=== PATIENT | female | born 2000 | race Caucasian/White ===

== ENCOUNTER 2021-04-06 22:44 | Emergency (ER) | payer OTHER, SELFPAY ==
[2021-04-06 22:44] VITALS: BP 120/75; PULSE 62; RESP 16; TEMP 36.8; O2SAT 98; BMI 19.7
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
[2021-04-07 01:06] VITALS: PULSE 81; RESP 14; O2SAT 99
== END 2021-04-07 01:06 | disposition home or self-care (01) ==
LOC: ED 04-07 01:03
PROVIDERS: Emergency Provider Emergency Medicine
DX: S09.90XA Unspecified injury of head, initial encounter (principal); V43.52XA Car driver injured in collision with other type car in traffic accident, initial encounter; Y92.410 Unspecified street and highway as the place of occurrence of the external cause; Z79.899 Other long term (current) drug therapy
CPT/HCPCS: 99282

== ENCOUNTER 2022-04-10 00:35 | Emergency (ER) | payer OTHER, SELFPAY ==
[2022-04-10 00:36] VITALS: BP 117/63; PULSE 77; RESP 15; TEMP 36.8; O2SAT 98; BMI 22.4
--- NOTE | 2022-04-10 01:11 | EDS_ITS ---
HPI HPI - URI History of Present Illness Chief Complaint: Ear Problem Informant: patient Onset/Context/Timing Onset: Today Context: Gradual Onset Timing: Continuous Quality: Sore throat, ear pain on the right Current Severity: Moderate Maximum Severity: Moderate Worsened by: Swallowing Relieved by: - (Nothing has not tried anything) Narrative Narrative: Patient is a student here to college. She has been around a lot of other students since it is the beginning of the school year but nothing that she knows of as far as illness. Sore throat and right earache that started today, hearing is normal. No fevers or chills. No cough. She went swimming last week. ROS ROS ED Constitutional Constitutional ED: Denies chills or fever(s) ENT ENT ED: Reports ear pain right and sore throat; Denies nasal congestion or rhinorrhea Cardiovascular Cardiovascular: Denies chest pain or palpitations Respiratory/Chest Respiratory/Chest: Denies cough or dyspnea Gastrointestinal Gastrointestinal: Denies abdominal pain, diarrhea, nausea or vomiting Genitourinary Genitourinary ED: Denies dysuria or hematuria Musculoskeletal Musculoskeletal: Denies myalgias or neck pain Integumentary Denies abscess or rash Neurologic Neurologic: Denies headache(s), paresthesias or weakness Psychiatric Psychiatric: Denies depression or suicidal thoughts Endocrine Endocrinology: Denies polydipsia or polyuria PFSH PFS Medical History Anxiety Depression Home Medications norgestimate 0.25 mg-ethinyl estradiol 35 mcg tablet (Sprintec (28)) 1 tab PO DAILY 04/07/21 [History Last Taken Unknown] sertraline 120 mg PO.IVFORM DAILY 04/07/21 [History Last Taken Unknown] Allergy/AdvReac Type Severity Reaction Status Date / Time No Known Allergies Allergy Verified 04/06/21 22:46 Social History Smoking Status: Never smoker EXAM Physical Exam Const Vital Signs: 04/10/22 00:36 Temperature 98.2 F Temperature Source Oral Pulse Rate 77 Respiratory Rate 15 Blood Pressure 117/63 Blood Pressure Mean 81 Pulse Ox 98 Oxygen Delivery Method Room Air Positive well nourished and well developed General Appearance ED: well developed and NAD HEENT Reports moist mucous membranes HEENT Narrative: TMs normal bilaterally. Painful exam right EAC with some mild swelling and erythema, no exudate, painful to manipulate the tragus and pinna. Normal EAC on the left. normocephalic and atraumatic Throat: posterior oropharynx abnormal Positive for erythema and other (No trismus); Negative for edema, exudates or foreign body Eyes PERRL and EOMs intact bilaterally Neck supple and no meningeal signs Neck Narrative: Tender submandibular lymphadenopathy no other nodes. No posterior lymphadenopathy. Resp normal respiratory effort and clear to auscultation bilaterally Cardio no murmurs Rate: regular rate Rhythm: regular rhythm Neuro oriented x3, CN's II-XII intact bilaterally and no sensory deficits noted Sensorium / Orientation: alert Motor Exam: strength 5/5 throughout Skin Lesions: no lesions Rashes: no rashes MDM MDM MDM Narrative Medical decision making narrative: I ran rapid COVID and strep swabs they are both negative. Strep culture is sent to confirm. In the meantime we will give her ibuprofen and Decadron and she was given Cortisporin otic suspension drops for the right otitis externa. We will treat the pharyngitis is viral unless the culture returns positive. Discharge Plan Triage Chief Complaint: Ear Problem ED Provider: Sherman Robert Dx/Rx/DC Orders Clinical Impression: Right otitis externa, Acute viral pharyngitis Instructions: ED Pharyngitis, Report Pending, ED External Ear Infection (Adult) Prescriptions: No Action norgestimate-ethinyl estradiol [Sprintec (28)] 0.25-35 mg-mcg Tablet 1 tab PO DAILY sertraline 120 mg PO.IVFORM DAILY Primary Care Provider: Dean Vernon Referrals: [facility] [Group of Physicians] - 3-5 Days if not improving Town Doctor,Out of [Non-Staff] - Activity Restrictions/Additional Instructions: 4 drops to affected ear 3-4 times daily for the next week or until better. Disposition Disposition: Home, Self Care
[2022-04-10] MEDS: Neomycin/Polymyxin/Dexameth 5ML OPTH.BTL 4 DRP OTIC (01:34)
[2022-04-10] MEDS: dexAMETHasone 4 MG Tablet 8 MG PO (02:22)
[2022-04-10] MEDS: Ibuprofen 600 MG Tablet PO (02:23)
[2022-04-10 02:24] VITALS: BP 110/60; PULSE 75; RESP 16
== END 2022-04-10 02:24 | disposition home or self-care (01) ==
PROVIDERS: Emergency Provider Emergency Medicine; PCP Pediatrics; Visit Provider Emergency Medicine
DX: H60.91 Unspecified otitis externa, right ear (principal); J02.8 Acute pharyngitis due to other specified organisms
CPT/HCPCS: 87811; 87880; 99283

== ENCOUNTER 2022-04-11 17:16 | Emergency (ER) | payer OTHER, SELFPAY ==
[2022-04-11 17:19] VITALS: BP 121/79; PULSE 100; RESP 17; TEMP 36.4; O2SAT 98; BMI 22.3
--- NOTE | 2022-04-11 17:31 | CT_ITS ---
STUDY: CT SOFT TISSUE NECK WITH CONTRAST REASON FOR EXAM: Female, 21 years old. peritonsillar abscess, right RADIATION DOSAGE (If Supplied By Facility): CTDIvol = ( 14.03 ) mGy, DLP = ( 409.97 ) mGycm TECHNIQUE: The patient was scanned in a multi-detector CT scanner. High resolution transaxial imaging was performed following intravenous administration of IV 75mL Isovue-370. Sagittal and coronal images were reconstructed. Individualized dose optimization techniques were used for this CT. COMPARISON: None. FINDINGS: Normal bilateral parotid glands. Normal bilateral medical insurance biller spaces. Normal bilateral parapharyngeal spaces. Normal bilateral carotid spaces. Normal bilateral sublingual and submandibular glands and spaces. Normal visualized nasopharynx. Normal retropharyngeal space. Normal perivertebral space. 2 cm oval peripherally enhancing fluid collection with gas in the right lingual tonsil consistent with a peritonsillar abscess. The visualized tongue, tongue base and oropharynx are normal. The visualized cervical lymph nodes (levels I-) are within normal size limits, and maintain normal morphology. There is no demonstrated solid or cystic mass lesion. There is no abnormal contrast enhancement. Normal epiglottis, bilateral vallecula and hypopharynx. The pre-epiglottic and paraglottic adipose spaces are normal. Normal visualized bilateral piriform sinuses, aryepiglottic folds, vocal cords, and arytenoid-cricoid articulations. Normal subglottic trachea. Normal bilateral lobes of the thyroid gland. Normal visualized pulmonary apices. Normal visualized paranasal sinuses. Normal visualized cervical spine. CT/Soft Tissue Neck WITH Contrast IMPRESSION: Tonsillitis with a 2 cm right peritonsillar abscess. Electronically Signed: Hugh Phillip MD at 18:00 EDT ,
--- NOTE | 2022-04-11 17:31 | EX.ED.DYSGE1 ---
HPI History of Present Illness Chief Complaint: Ear Problem Informant: patient Narrative Narrative: 21-year-old female seen in the [facility] yesterday for ear pain and sore throat. Patient states she was told she had otitis external has been taking Cortisporin drops. She states they have not done anything for her. She states her throat still hurts and her ear hurts. She denies any fever. States nothing has been draining out of the ear. [facility] Medical History Anxiety Depression Home Medications norgestimate 0.25 mg-ethinyl estradiol 35 mcg tablet (Sprintec (28)) 1 tab PO DAILY 04/07/21 [History Last Taken Unknown] sertraline 100 mg tablet 120 mg PO QHS 04/11/22 [History Last Taken Unknown] Allergy/AdvReac Type Severity Reaction Status Date / Time No Known Allergies Allergy Verified 04/06/21 22:46 Social History (Updated 04/11/22 @ 17:[address] Aram Major DO) Smoking Status: Current every day smoker tobacco type: e-cigarettes substance use type: does not use ROS ROS ED Constitutional Constitutional ED: Denies chills, fever(s) or weight loss Eyes Eyes: Denies change in vision or diplopia ENT ENT ED: Reports ear pain and sore throat; Denies rhinorrhea Cardiovascular Cardiovascular: Denies chest pain, orthopnea, palpitations or racing heartbeat Respiratory/Chest Respiratory/Chest: Denies cough, dyspnea or orthopnea Gastrointestinal Gastrointestinal: Denies abdominal pain, diarrhea, nausea or vomiting Genitourinary Genitourinary ED: Denies dysuria, hematuria or urinary frequency Musculoskeletal Musculoskeletal: Denies arthralgias or myalgias Integumentary Denies abscess or rash Neurologic Neurologic: Denies headache(s) or weakness Psychiatric Psychiatric: Denies anxiety, depression, suicidal ideation or suicidal thoughts Endocrine Endocrinology: Denies polydipsia, polyphagia or polyuria Allergic/Immunologic Allergic/Immunologic ED: Denies mouth swelling, tongue swelling or urticaria EXAM Physical Exam Const Vital Signs: 04/11/22 17:19 Temperature 97.5 F L Temperature Source Temporal Pulse Rate 100 Respiratory Rate 17 Blood Pressure 121/79 H Blood Pressure Mean 93 Pulse Ox 98 Oxygen Delivery Method Room Air Positive well nourished and well developed General Appearance ED: well developed HEENT Reports normocephalic, head/scalp atraumatic and moist mucous membranes HEENT Narrative: The ears appear normal. I do not see evidence of otitis externa or media. Oral pharyngeal exam reveals exudate on the right tonsil with peritonsillar swelling. Floor the mouth is soft. She has no trismus. She Caeli her secretions normally. Eyes PERRL and EOMs intact bilaterally Neck supple and no JVD Neck Narrative: Tender anterior lymph nodes Resp normal respiratory effort and clear to auscultation bilaterally Cardio regular rate, regular rhythm and no murmurs GI normal to inspection, nondistended, normoactive bowel sounds and non-tender Palpation: soft Back/Spine no CVA tenderness and normal ROM Extremity normal to inspection General Extremety ED: Negative for edema General Extremity: Negative for edema Neuro oriented x3 and CN's II-XII intact bilaterally Sensorium / Orientation: alert Motor Exam: strength 5/5 throughout Psych mental status grossly normal Mood & Affect: Negative for depressed or tearful Skin no rashes or lesions noted and no wounds MDM MDM MDM Narrative Medical decision making narrative: CT demonstrates a 2 cm right peritonsillar abscess with tonsillitis. This weekend there is no ENT coverage at this institution. I spoke with the patient recommended that she transfer to [facility] where ENT can see her. I called their spoke with Dr. Escobar who notes that there is ENT coverage that can drain this. Patient received Toradol for pain. She had received Decadron yesterday. Radiography Diagnostic Testing: Clinical Impression(s) from Imaging Studies Soft Tissue Neck CT 04/11/22 17:31 IMPRESSION: Tonsillitis with a 2 cm right peritonsillar abscess. Electronically Signed: Hugh Phillip MD at 18:00 EDT , Discharge Plan Triage Chief Complaint: Ear Problem ED Provider: Aram Major Dx/Rx/DC Orders Clinical Impression: Peritonsillar abscess Prescriptions: No Action norgestimate-ethinyl estradiol [Sprintec (28)] 0.25-35 mg-mcg Tablet 1 tab PO DAILY sertraline 100 mg Tablet 120 mg PO QHS Primary Care Provider: Dean Vernon Referrals: Dean Vernon MD [Primary Care Provider] - Activity Restrictions/Additional Instructions: [facility] [address] [id number] Disposition Disposition: Acute Care Hospital Discharge Location: [facility]
[2022-04-11] MEDS: Ketorolac 30 MG/ML Syringe IV (18:33)
[2022-04-11 18:52] VITALS: BP 121/67; PULSE 98; RESP 19; O2SAT 100
== END 2022-04-11 19:11 | disposition short-term general hospital (02) ==
PROVIDERS: Emergency Provider Emergency Medicine; PCP Pediatrics; Visit Provider Emergency Medicine
DX: J36 Peritonsillar abscess (principal); F17.290 Nicotine dependence, other tobacco product, uncomplicated; F41.9 Anxiety disorder, unspecified; F32.A Depression, unspecified; Z79.899 Other long term (current) drug therapy
CPT/HCPCS: 70491; 87070; 87077; 87880; 96374; 99284; Q9967; A4216

== ENCOUNTER 2022-06-17 12:51 | Emergency (ER) | payer MEDICAID, SELFPAY ==
[2022-06-17 12:52] VITALS: BP 123/85; PULSE 79; RESP 14; TEMP 36.8; O2SAT 97; BMI 22.4
--- NOTE | 2022-06-17 13:20 | EX.ED.DYSGE1 ---
HPI History of Present Illness Chief Complaint: Cough Informant: patient and parent Narrative Narrative: Here with mother 2 weeks of initial symptoms. States had fever headache myalgias and sinus congestion. Most symptoms resolving except for congestion. Seen at [facility] 3 days ago negative flu. Multiple COVID test has been negative. 2 days ago started having vomiting 2 episodes. Currently mild nausea. No urinary symptoms. Mother reports exertional dyspnea with wheezing. Patient vapes. No history of asthma. Had bronchitis a year ago. On control. Last menstrual period the last week. Prior similar symptoms: Yes PFSH PFSH Medical History Anxiety Depression Home Medications norgestimate 0.25 mg-ethinyl estradiol 35 mcg tablet (Sprintec (28)) 1 tab PO DAILY 04/07/21 [History Last Taken Unknown] sertraline 100 mg tablet 120 mg PO QHS 04/11/22 [History Last Taken Unknown] ondansetron 4 mg disintegrating tablet 4 mg PO Q6H PRN nausea and vomiting #10 tabs 06/17/22 [Rx Last Taken Unknown] Allergy/AdvReac Type Severity Reaction Status Date / Time No Known Allergies Allergy Verified 04/06/21 22:46 Social History Smoking Status: Current every day smoker tobacco type: e-cigarettes substance use type: does not use ROS ROS ED Constitutional Constitutional ED: Reports fever(s); Denies chills or sweats Eyes Eyes: Denies change in vision ENT ENT ED: Denies dysphagia or sore throat Cardiovascular Cardiovascular: Denies chest pain, leg edema, palpitations or racing heartbeat Respiratory/Chest Respiratory/Chest: Denies cough, dyspnea or dyspnea on exertion Gastrointestinal Gastrointestinal: Reports nausea and vomiting; Denies abdominal pain or diarrhea Genitourinary Genitourinary ED: Denies dysuria, hematuria or urinary frequency Musculoskeletal Musculoskeletal: Denies back pain, extremity pain or neck pain Integumentary Denies rash or wounds Neurologic Neurologic: Denies headache(s), paresthesias or weakness EXAM Physical Exam Const Vital Signs: 06/17/22 12:52 06/17/22 13:32 Temperature 98.2 F Temperature Source Temporal Pulse Rate 79 Respiratory Rate 14 Respiratory Effort Normal Non-Labored Respiratory Depth Normal Respiratory Pattern Normal Blood Pressure 123/85 H Blood Pressure Mean 97 Pulse Ox 97 Oxygen Delivery Method Room Air Positive well nourished and well developed General Appearance ED: well developed and NAD HEENT Reports moist mucous membranes normocephalic and atraumatic Eyes PERRL, EOMs intact bilaterally and conjunctivae normal General Eye ED: Yes normal appearance of both eyes Neck no lymphadenopathy and supple General: Negative for tenderness Chest Wall Chest: Negative for tenderness Resp normal respiratory effort Resp Narrative: Coarse breath sounds lower lobes. Effort and Inspection: symmetric chest movement; Negative for respiratory distress Cardio regular rate, regular rhythm and no murmurs Peripheral Pulses: pulses 2+ throughout GI normal to inspection, nondistended, normoactive bowel sounds and non-tender Palpation: Negative for guarding or rebound tenderness present Back/Spine no CVA tenderness and no thoracic nor lumbar tenderness Extremity normal to inspection General Extremety ED: Negative for edema or tenderness General Extremity: Negative for edema Neuro oriented x3 and no sensory deficits noted Sensorium / Orientation: awake and alert Skin no rashes or lesions noted and no wounds MDM MDM MDM Narrative Medical decision making narrative: Patient nontoxic mild rhonchi on exam. MDI with spacer provided in ED with improvement of symptoms. Two-view chest x-ray reviewed by myself and read by radiology shows no acute process. She is given Zofran with improvement of symptoms. Discussed viral syndrome. Discussed importance of fluids for hydration. Prescription for Zofran sent to use as needed she will use her inhaler as needed. She will follow-up as an outpatient. All questions were answered. Radiography Diagnostic Testing: Clinical Impression(s) from Imaging Studies Chest X-Ray 06/17/22 13:25 IMPRESSION: Normal x-ray examination of the chest. Electronically Signed: Jim Jacobson MD at 13:42 EST , Discharge Plan Triage Chief Complaint: Cough ED Provider: Farhan Shabazz Dx/Rx/DC Orders Clinical Impression: Acute viral syndrome, Cough, Nausea & vomiting Instructions: ED Viral Syndrome (Adult), ED Vomiting (Adult) Prescriptions: New ondansetron 4 mg tablet,disintegrating 4 mg PO Q6H PRN (Reason: nausea and vomiting) Qty: 10 0RF No Action norgestimate-ethinyl estradiol [Sprintec (28)] 0.25-35 mg-mcg Tablet 1 tab PO DAILY sertraline 100 mg Tablet 120 mg PO QHS Primary Care Provider: Care Physician,No Primary Referrals: Dean Vernon MD [Non-Staff] - 1 Week if not improving Activity Restrictions/Additional Instructions: Chest x-ray negative. Inhaler as needed. Continue oral fluids. Zofran as needed. Follow-up with your doctor symptoms worsens or do not improve in the next week. Disposition Disposition: Home, Self Care Discharge Date/Time: 06/17/22 14:44
--- NOTE | 2022-06-17 13:25 | RAD_ITS ---
STUDY: X-RAY CHEST REASON FOR EXAM: Female, 21 years old. 2 week history of cough and chest congestion. Fever and fatigue. TECHNIQUE: PA and lateral views of the chest. COMPARISON: None. FINDINGS: The lungs are clear and expanded. There is no demonstrated pleural abnormality. Normal size heart. Normal mediastinum and barbara. Normal visualized pulmonary arteries. Normal visualized aortic arch and descending thoracic aorta. Normal visualized thoracic spine. Normal visualized ribs, clavicles, and shoulders. There is no demonstrated abnormality of the visualized soft tissue structures of the upper abdomen. RAD/Chest PA and Lateral IMPRESSION: Normal x-ray examination of the chest. Electronically Signed: Jim Jacobson MD at 13:42 EST ,
[2022-06-17] MEDS: Ondansetron ODT 4 MG Tablet PO (13:26)
[2022-06-17] MEDS: Albuterol Sulfate 8 gm Inhaler (60 puffs) 2 PUFF INHALATION (13:26)
== END 2022-06-17 14:44 | disposition home or self-care (01) ==
PROVIDERS: Emergency Provider Emergency Medicine; Visit Provider Emergency Medicine
DX: B34.9 Viral infection, unspecified (principal); R05.9 Cough, unspecified; R11.2 Nausea with vomiting, unspecified; F17.290 Nicotine dependence, other tobacco product, uncomplicated; Z79.899 Other long term (current) drug therapy
CPT/HCPCS: 71046; 99282